=== PATIENT | male | born 1985 | race Caucasian/White ===

== ENCOUNTER 2017-03-17 01:16 | Emergency (ER) | payer OTHER ==
[2017-03-17 01:54] VITALS: BP 124/80
--- NOTE | 2017-03-17 02:05 | ERNOTE ---
Upper Extremity HPI - Narrative Date of Service: 03/17/17 - General Time Seen by Provider: 03/17/17 01:58 Source: patient Exam Limitations: no limitations - Immun/Allergies/Home Medications Immunizations: IMMUNIZATION HX Immunizations Up to Date Yes History of Influenza Vaccine Yes Hx Pneumococcal Vaccination No Allergies/Adverse Reactions: Allergies Allergy/AdvReac Type Severity Reaction Status Date / Time No Known Allergies Allergy Unverified 09/25/12 16:46 Home Medications: HOME MEDICATIONS Citalopram Hydrobromide [Celexa] 40 mg PO DAILY 11/05/13 [Last Taken Unknown] Naproxen [Naprosyn] 500 mg PO PRN PRN 11/05/13 [Last Taken Unknown] - History of Present Illness Narrative: Was working with a crescent wrench when it fell onto his hand then he came down on it on a cement floor. Had lateral dorsal pain increased with movement. Occurred: just prior to arrival Location of Incident: home Review of Systems - Review of Systems Constitutional: Present: no symptoms reported ENT: Present: no symptoms reported Respiratory: Present: no symptoms reported Cardiology: Present: no symptoms reported Gastrointestinal/Abdominal: Present: no symptoms reported Musculoskeletal: Present: See HPI Neurological: Present: no symptoms reported - Patient's Past Medical History Patient History - Medical: No pertinent hx Patient History - Cardiac/Respiratory: No pertinent hx Patient History - Cancer: No Hx of Cancer Patient History - Surgical Procedures: No surgical history Patient History - Other: None - Social History Living Situations: home Psych History: Hx of Anxiety, Hx of Depression Smoking Status: Former smoker Have you smoked in the past 12 months: Yes Alcohol Use: rarely Drug Use: none - Immunizations Immunizations Up to Date: Yes Hx Pneumococcal Vaccination: No History of Influenza Vaccine: Yes Physical Exam - Physical Exam General Appearance: Present: wd/wn, alert, no apparent distress Extremity Exam: Present: other - Right lateral hand tenderness with slight swelling. No ecchymosis. Full range of motion. No neuro deficit ED Progress - Vital Signs Vital Signs: Vital Signs 03/17/17 01:49 Temperature 37.0 C Pulse Rate 109 H Respiratory 18 Rate Blood Pressure 124/80 O2 Sat by Pulse 98 Oximetry - X-Ray X-Ray #1 X-Ray: hand - No fx seen - Progress/Reassessment Chief Complaint: Hand Injury/Pain Plan - Plan Plan: Home Elevation/ice Ibuprofen/tylenol Follow up with PCP Departure Clinical Impression: Contusion of hand, right - Departure Disposition: Home self-care Condition: Good Instructions: Contusion, [id number] Additional Instructions: Ice/elevation x 24 hours Use ibuprofen 600 mg alternating with tylenol 1000 mg every 3 hours. Follow up with PCP if not improved
--- OUTSIDE RECORDS SUMMARY | 2017-03-17 02:09 | XMS REPORT | Continuity of Care Document ---
:1985 Author Organization [facility] ([facility]) Address [address] [address] Phone [phone] Care Team Providers Name Role Phone Unavailable Primary Care Provider Unavailable Source Comments This disclosure is being made pursuant to the Care Everywhere program, applicable federal and state laws, and may not contain all informaitonavailable regarding this patient.[facility] ([facility]) Active Allergies and Adverse Reactions Not on File Current Medications Not on file Active Problems Not on file Social History Tobacco Use Types Packs/Day Years Used Date Never Assessed Last Filed Vital Signs Vital Sign Reading Time Taken Blood Pressure - - Pulse - - Temperature - - Respiratory Rate - - Height 1.66 m (5' 5.35") 08/09/2000 11:45 PM [employer] Weight 73.397 kg (161 lb 13 oz) 08/23/2000 9:00 AM [employer] Body Mass Index 26.64 08/23/2000 9:00 AM [employer] Oxygen Saturation - - Plan of Care Health Maintenance Due Date Last Done Comments Hepatitis B Vaccine (1 of 3 - Primary Series) 1985 Tdap Vaccine 1997 Lipid Disorder Screening 2004 MMR Vaccine 2004 Td Vaccine 2004 Varicella Vaccine (1 of 2 - Adult - No Evidence of 2004 Immunity) Influenza Vaccine: Seasonal (#1) 05/06/2016 Results from Last 3 Months Not on file
== END 2017-03-17 02:30 | disposition home or self-care (01) ==
LOC: ER 01:16
DX: S60.221A Contusion of right hand, initial encounter (principal); X58.XXXA Exposure to other specified factors, initial encounter; Y93.89 Activity, other specified; Y92.009 Unspecified place in unspecified non-institutional (private) residence as the place of occurrence of the external cause